=== PATIENT | male | born 1990 | race Caucasian/White ===

== ENCOUNTER 2019-05-29 13:43 | Emergency (ER) | payer MEDICAID ==
[2019-05-29] MEDS ORDERED: HYDROCODONE/APAP 5/325MG TABLET PO ONE (14:59)
[2019-05-29] MEDS ORDERED: KETOROLAC 30 MG/ML VIAL IM ONE (14:59)
[2019-05-29] MEDS ORDERED: ORPHENADRINE CITRATE 60MG/2ML VIAL IM ONE (14:59)
--- NOTE | 2019-05-29 14:59 | Emergency Department Record ---
History of Present Illness - General Chief Complaint: Back Pain/Injury Stated Complaint: LOWER BACK PAIN Time Seen by Provider: 05/29/19 14:53 Source: Patient Mode of Arrival: Ambulatory Limitations: No limitations - History of Present Illness Initial Comments: 28 yo male presents with back pain. He has had known lumbar disc disease for about 5 years. The last two days the pain has increased. He does get pain down the left left at times. He saw his PCP, had and MRI, saw an orthopedists and was referred to a spine doctor all through [facility]. He is waiting to see the spine doctor. No foot drop. No weakness. No urinary symptoms. MD Complaint: Back pain, Back injury -: Year(s) Place: Home Radiation: Left leg Severity: Severe Quality: Aching, Sharp Consistency: Constant Improves With: Immobilization Worsens With: Movement, Walking Context: Bending Associated Symptoms: Denies other symptoms - Related Data Previous Rx's Medication Instructions Recorded Cyclobenzaprine HCl [Flexeril] 10 mg PO TID #12 tablet 05/29/19 Methylprednisolone [Medrol Dose 0 mg PO UD #1 tab.ds.pk 05/29/19 Pack] Naproxen [Naprosyn] 500 mg PO Q12H #25 tablet 05/29/19 Allergies Allergy/AdvReac Type Severity Reaction Status Date / Time No Known Drug Allergies Allergy Verified 05/29/19 14:57 Review of Systems Constitutional: Denies: Chills, Fever, Malaise, Weakness Eyes: Denies: Eye discharge ENT: Denies: Congestion, Throat pain Respiratory: Denies: Cough, Dyspnea Cardiovascular: Denies: Chest pain, Palpitations, Syncope Endocrine: Denies: Fatigue Gastrointestinal: Denies: Abdominal pain, Diarrhea, Nausea, Vomiting Genitourinary: Denies: Dysuria, Frequency, Hematuria Musculoskeletal: Reports: Back pain. Denies: Arthralgia, Myalgia, Neck pain Skin: Denies: Bruising, Change in color, Rash Neurological: Reports: Paresthesias. Denies: Abnormal gait, Confusion, Headache, Numbness, Seizure, Tingling, Tremors, Vertigo, Weakness Psychiatric: Reports: Anxiety Hematological/Lymphatic: Denies: Easy bleeding, Easy bruising Physical Exam - General General Appearance: Alert, Oriented x3, Cooperative, No acute distress Limitations: No limitations - Head Head exam: Atraumatic, Normal inspection - Eye Eye exam: Normal appearance, PERRL. negative: Conjunctival injection, Scleral icterus - ENT ENT exam: Normal exam Ear exam: Normal external inspection Nasal Exam: Normal inspection Mouth exam: Normal external inspection - Neck Neck exam: Normal inspection - Respiratory Respiratory exam: Normal lung sounds bilaterally. negative: Respiratory distress - Cardiovascular Cardiovascular Exam: Regular rate, Normal rhythm, Normal heart sounds Peripheral Pulses: 2+: Radial (R), Radial (L) - GI/Abdominal GI/Abdominal exam: Soft. negative: Tenderness - Rectal Rectal exam: Deferred - exam: Deferred - Extremities Extremities exam: Full ROM. negative: Normal inspection, Joint swelling, Pedal edema, Tenderness - Back Back exam: Reports: Muscle spasm, Paraspinal tenderness, Vertebral tenderness. Denies: CVA tenderness (R), CVA tenderness (L), Full ROM - Neurological Neurological exam: Alert, Normal gait, Oriented X3, Reflexes normal, Other (EHL intact, foot flexion and extension intact). negative: Abnormal gait, Motor sensory deficit - Psychiatric Psychiatric exam: Normal affect, Normal mood. negative: Agitated, Anxious - Skin Skin exam: Dry, Intact, Normal color, Warm Course - Reevaluation(s) Reevaluation #1: 05/29/19 15:06 MAPS was reviewed at the time of the prescripts RX for Suboxone filled in April I discussed non narcotic treatment plan with the patient 05/29/19 No motor weakness, symmetric reflexes, no history of changes with bowel or bladder changes He has follow up with PCP and a pending spine surgery referral. 05/29/19 Disposition Disposition: Discharge Clinical Impression: Lumbar radicular pain Disposition: Home, Self-Care Condition: (1) Good Instructions: Sciatica (ED) Additional Instructions: Review this ER visit and the tests performed with your family doctor Call your doctor for the next available follow up appointment Return to the ER for a recheck if worse, any new concerns or questions Take the prescriptions provided as directed Prescriptions: Cyclobenzaprine HCl [Flexeril] 10 mg PO TID #12 tablet Methylprednisolone [Medrol Dose Pack] 0 mg PO UD #1 tab.ds.pk Naproxen [Naprosyn] 500 mg PO Q12H #25 tablet Forms: Patient Portal Access Time of Disposition: 15:04 Quality - Quality Measures Quality Measures: N/A - Blood Pressure Screening Does Patient Have Any of the Following: No Blood Pressure Classification: Pre-Hypertensive BP Reading Systolic Measurement: 127 Diastolic Measurement: 82 Screening for High Blood Pressure: < Pre-Hypertensive BP, F/U Documented > [G8950] Pre-Hypertensive Follow-up Interventions: Referral to alternative/primary care provider.
== END 2019-05-29 15:49 | disposition home or self-care (01) ==
LOC: ER 13:43
DX: M54.16 Radiculopathy, lumbar region (principal)
CPT/HCPCS: 96372; 99284; J1885; J2360